=== PATIENT | female | born 1955 | race Caucasian/White ===

== ENCOUNTER 2021-01-03 00:15 | Inpatient (IN) | payer OTHER, MEDICARE ==
[~2021-01-03] VITALS: Ht 147.3 cm; Wt 105.7 kg
[2021-01-03 01:03] LABS: BASOPHIL 0.5 % (0-2); EOSINOPHIL 0.9 % (0-7); HCT 41.9 % (37.0-47.0); HGB 13.4 g/dl (12.5-16.0); LYMPHOCYTE 13.1 % (15-48); MCH 27.1 pg (25.0-31.0); MCV 84.6 fL (78.0-100.0); MPV 9.9 fL (6.0-9.5); NEUTROPHIL 77.5 % (41-80); NRBC 0; PLT 225 K/uL (150-400); RBC 4.95 M/uL (4.20-5.40); RDW 15.9 % (11.5-14.0); WBC 5.9 K/uL (4.0-10.5)
[2021-01-03 01:23] LABS: PRO-BNP 121 pg/mL (<125)
[2021-01-03 01:27] LABS: ALBUMIN 3.2 g/dL (3.4-5.0); BILIRUBIN - TOTAL 0.6 mg/dL (0.2-1.0); BUN/CREAT RATIO (CALC) 21.3 RATIO; C-REACTIVE PROTEIN 15.1 mg/dL (<=0.90); CREATININE 0.94 mg/dL (0.51-0.95); GLOBULIN (CALCULATION) 4.5 g/dL; POTASSIUM 3.5 mmol/L (3.5-5.1); TOTAL PROTEIN 7.7 g/dL (6.4-8.2)
[2021-01-03 01:39] LABS: LACTIC ACID 4.7 mmol/L (0.4-1.9)
[2021-01-03 01:46] LABS: INFLUENZA A NAA NEGATIVE (NEGATIVE)
[2021-01-03 01:47] LABS: CORONAVIRUS 2019 SARS-COV-2 POSITIVE (NEGATIVE)
[2021-01-03] MEDS ORDERED: TOPROL XL 25MG25 MG PO (11:03)
[2021-01-03] MEDS ORDERED: NISOLDIPINE17 MG PO (11:03)
[2021-01-03] MEDS ORDERED: NAPROXEN500 MG PO (11:04)
[2021-01-03] MEDS ORDERED: COZAAR100 MG PO (11:05)
[2021-01-03] MEDS ORDERED: CYMBALTA20 M1 PO (11:05)
[2021-01-04 05:51] LABS: BASOPHIL 0.1 % (0-2); EOSINOPHIL 0 % (0-7); HCT 39.1 % (37.0-47.0); HGB 12.5 g/dl (12.5-16.0); LYMPHOCYTE 7.2 % (15-48); MCH 26.4 pg (25.0-31.0); MCV 82.5 fL (78.0-100.0); MONOCYTE 7.4 % (0-12); MPV 9.6 fL (6.0-9.5); NEUTROPHIL 84.3 % (41-80); NRBC 0; PLT 258 K/uL (150-400); RBC 4.74 M/uL (4.20-5.40); RDW 15.7 % (11.5-14.0); WBC 8.2 K/uL (4.0-10.5)
[2021-01-04 06:42] LABS: ALBUMIN 2.9 g/dL (3.4-5.0); BILIRUBIN - TOTAL 0.4 mg/dL (0.2-1.0); BUN/CREAT RATIO (CALC) 33.8 RATIO; C-REACTIVE PROTEIN 9.6 mg/dL (<=0.90); CREATININE 0.77 mg/dL (0.51-0.95); GLOBULIN (CALCULATION) 4.5 g/dL; POTASSIUM 3.6 mmol/L (3.5-5.1); TOTAL PROTEIN 7.4 g/dL (6.4-8.2)
--- NOTE | 2021-01-05 12:11 | NUR ---
1010 CALLED TO PT ROOM. PT STATES "SHE CAN'T BREATHE." AFTER GETTING UP TO BSC PT O2 SAT 74% ON 100% RR 42 AND LABORED WITH ACCESSORY MUSCLE USE VAPOTHERM AT 100% AND NRB IN USE. PT ANXIOUS, ATARAX GIVEN. ENCOURAGED PT TO TAKE SLOW DEEP BREATHS. PT RECOVERED TO 88% AFTER [address] ACUÑA AND REQUESTED ÁLVAREZ CATH. ÁLVAREZ CATH PLACED WITHOUT DIFFICULTY. ORDERS RECIEVED TO TRANSFER PT TO ICU FOR CLOSER MONITORING ERLINDA PT DAUGHTER NOTIFIED AND GIVEN AN UPDATE ON PT CONDITION AND STATES SHE WILL UPDATE OTHER FAMILY MEMBERS 1050 PT TRANSFER TO ICU 1 WITH ASSIST OF RT RIHCMOND Stevens W/O DIFFICULTY PT O2 Sat remain at 88% after tranfer.
[2021-01-05 12:13] LABS: BILIRUBIN NEGATIVE (NEGATIVE); BLOOD 1+ Ery/uL (NEGATIVE); CLARITY CLEAR (CLEAR); COLOR YELLOW (YELLOW); GLUCOSE (U) NORMAL (NORMAL); LEUKOCYTES NEGATIVE Leu/uL (NEGATIVE); NITRITE NEGATIVE (NEGATIVE); PROTEIN 2+ mg/dL (NEGATIVE); UROBILINOGEN 0.2 mg/dL (0.2-1.0); pH 6.5 (5.0-9.0)
--- NOTE | 2021-01-05 20:03 | NUR ---
ABG OBTAINED. RESULTS GIVEN TO ÁNGEL NIEVESCISCO FARFAN PATIENT ON 40LPM/100% VAPOTHERM, HEATER TEMP 34, ALSO ON 100% NRB PATIENT ANXIOUS, ALL QUESTIONS ANSWERED TO EASE PATIENT'S MIND. CONTINUE TO MONITOR. PH 7.499, CO2 30.7, PO2 68.5, HCO3 23.9, SAT 94%
--- NOTE | 2021-01-05 23:17 | NUR ---
AT 2100 PATIENT CALLED OUT COMPLAINING OF WORSENING SOB, PATIENT ON HFNC 100% 40L AND 100% NRB. PATIENT TACHYPNIC WITH RR OF 50 AND 02 SATS IN MID LOW 80S. PATIENT STATED THAT SHE WAS GETTING TIRED AND WANTED HELP BREATHING WITH THE VENTILATOR. NOTIFIED PROVIDER LEONIDAS KIMBALL APRN THAT PATIENT CONDITION IS CONTINUING TO DETERIORATE AND THAT PATIENT WISHES TO HAVE INCREASED HELP WITH BREATHING. PROVIDER AT BEDSIDE TO CONSENT PATIENT FOR INTUBATION. PATIENT GIVEN A TOTAL OF 60MG OF ETOMIDATE AND 180MG OF SUCCICHOLINE FOR PROCEDURE. PATIENT ALSO ON PROPOFOL DRIP RUNNING AT 50 MCG/KG/MIN FOR THE PROCEDURE. PATIENT TRANSITIONED TO FENTANYL AND VERSED DRIPS POST INTUBATION.
--- NOTE | 2021-01-05 23:33 | NUR ---
PATIENT INTUBATED AROUND 2149. BOTH RT PRESENT, ÁNGEL KIMBALL APRN, RN AT BEDSIDE. INTUBATED BY DR. VILLA VIA GLIDESCOPE WITH 7.5 ET 22 @LIP. GOOD COLOR CHANGE W/ CO2 DETECTOR, VISUALIZED CONDENSATION IN ET TUBE AND CXR. PATIENT HARTD TO BAG AT TIMES WITH AMBU BAG. PATIENT PLACED ON VENTILATOR W/ ARDS PROTCOL SETTINGS. PATIENT DID NOT VENTILATE WELL ON VC. PATIENT STARTED ON AC VT 450, RATE 20, 100% AND +10 PEEP WITH SAT 80%. PATIENT TACHYPNEIC ON VENT WITH RR IN UPPER 30s, PATIENT ACHIEVING TIDAL VOLUMES BUT AIR HUNGRY ON APPEARANCE OF VENTILATOR WAVEFORMS. INCREASED PEEP TO 14. PATIENT HAD ABDOMINAL MUSCLE USAGE. ALBUTEROL/ATROVENT MDIs GIVEN AND PATIENT SUCTIONED WITH THICK RED BLOOD VIA ET TUBE. PATIENT SWITCHED TO PC. IP 18, RATE 20, 100% AND PEEP 14. PATIENT BECOMING LESS TACHYPNEIC ON VENT, BREATHING BETTER IN APPEARANCE. BAM KIMBALL APRN NOTIFIED OF VENT SETTINGS AND CHANGES MADE AND PATIENTS OVER ALL EFFORT WHILE ON VENTILATOR. ABG OBTAINED ON PC SETTINGS. 7.353/36.6/58/20.3/ SAT 88%. PATIENT CURRENT SAT 93%. ÁNGEL KIMBALL APRN PLACED CONSULT CALL OUT TO DR. JURADO AND AWATING FURTHER ORDERS OR CAHNGES. CONTINUE TO MONITOR COVID + PATIENT
--- NOTE | 2021-01-06 00:54 | NUR ---
PER RN, DR. JURADO OK WITH CURRENT SETTINGS. CONTINUE TO MONITOR FOR WORSENING CONDITIONS. AM PHIL THIS AM
[2021-01-06 06:03] LABS: BASOPHIL 0.1 % (0-2); EOSINOPHIL 0 % (0-7); HCT 35.7 % (37.0-47.0); HGB 11.3 g/dl (12.5-16.0); LYMPHOCYTE 7.1 % (15-48); MCH 26.9 pg (25.0-31.0); MCHC 31.7 g/dL (32.0-36.0); MONOCYTE 7.8 % (0-12); MPV 10.4 fL (6.0-9.5); NEUTROPHIL 83.2 % (41-80); NRBC 0; PLT 279 K/uL (150-400); RDW 16.2 % (11.5-14.0); WBC 10.1 K/uL (4.0-10.5)
[2021-01-06 06:17] LABS: ALBUMIN 2.5 g/dL (3.4-5.0); BILIRUBIN - TOTAL 0.7 mg/dL (0.2-1.0); BUN/CREAT RATIO (CALC) 23.8 RATIO; CREATININE 1.47 mg/dL (0.51-0.95); GLOBULIN (CALCULATION) 3.2 g/dL; MAGNESIUM 1.6 mg/dL (1.8-2.4); POTASSIUM 3.5 mmol/L (3.5-5.1); TOTAL PROTEIN 5.7 g/dL (6.4-8.2)
--- NOTE | 2021-01-06 08:35 | NUR ---
TIME OUT COMPLETED FOR CENTRAL LINE PLACEMENT PER DR. ACUÑA. 1MG DILAUDID GIVEN DURING PROCEDURE. VERSED GTT INCREASED FROM 6 TO 12MG/HR DURING PROCEDURE DUE TO AGITATION. FENTANL GTT INCREASED FROM 75 TO 150MG/HR DUE TO AGITATION FROM LAYING FLAT. STERILE TECHNIQUE USED TO PLACE LINE IN RIGHT IJ. OG TUBE PLACED AFTER CENTRAL LINE PLACED. CXR AND KUB OBTAINED TO CONFIRM PLACEMENT OF OG AND CENTRAL LINE. OKAY TO USE LINE AND TUBE.
--- NOTE | 2021-01-06 18:27 | NUR ---
1800 AFTER MOVING PT TO STRETCHER PT GOT VERY AGGAITATED AND RESTLESS. RN HEMATOLOGY ASK FOR VERSED 5MG IV PUSH TO HELP SETTLE THE PATIENT
== END 2021-01-06 18:00 | disposition other institution (70) | DRG 208 ==
LOC: FER 00:15 → FTCU 04:02 → FICU 01-05 10:33
PROVIDERS: Emergency Medicine Emergency Medical Services; Internal Medicine; Nurse Practitioner; ADMIT Internal Medicine
PROC: 8E0ZXY6 Isolation (ICD-10-PCS; principal; 2021-01-03)
PROC: XW033E5 Introduction of Remdesivir Anti-infective into Peripheral Vein, Percutaneous Approach, New Technology Group 5 (ICD-10-PCS; 2021-01-03)
PROC: 5A0945A Assistance with Respiratory Ventilation, 24-96 Consecutive Hours, High Flow/Velocity Cannula (ICD-10-PCS; 2021-01-03)
PROC: 5A1945Z Respiratory Ventilation, 24-96 Consecutive Hours (ICD-10-PCS; 2021-01-05)
PROC: 0BH17EZ Insertion of Endotracheal Airway into Trachea, Via Natural or Artificial Opening (ICD-10-PCS; 2021-01-05)
DX: U07.1 COVID-19 (principal); J12.82 Pneumonia due to coronavirus disease 2019; J96.01 Acute respiratory failure with hypoxia; N17.9 Acute kidney failure, unspecified; E87.3 Alkalosis; I10 Essential (primary) hypertension; Z96.641 Presence of right artificial hip joint; Z96.651 Presence of right artificial knee joint; M79.7 Fibromyalgia; M19.90 Unspecified osteoarthritis, unspecified site; F41.9 Anxiety disorder, unspecified; Z90.49 Acquired absence of other specified parts of digestive tract; Z90.710 Acquired absence of both cervix and uterus; Z98.890 Other specified postprocedural states; Z78.1 Physical restraint status
CPT/HCPCS: 31500; 36415; 36600; 71045; 71275; 74018; 80053; 81001; 82728; 82803; 83605; 83735; 83880; 84145; 84484; 85025; 85379; 86140; 87040; 87070; 87077; 87088; 87186; 87205; 93005; 94002; 94010; 94640; C9113; C9399; J0330; J0360; J0456; J0696; J1100; J1170; J1650; J1940; J2020; J2060; J2250; J2704; J3010; J3475; J3480; J7030; J7050; Q9967; U0002